=== PATIENT | female | born 1945 | race Caucasian/White ===

== ENCOUNTER → 2017-05-21 | Outpatient (CLI) | payer MEDICARE, OTHER ==
[~2017-05-21] MED LIST: AMLO5TAB4 PO; ANTI1CAP3 PO; ASPI-650 PO; CHLO4TAB PO; CHOL400T8 PO; FERR27TA PO; MULT-703 PO; NIACIN PO; VITA400C15 PO
--- NOTE | 2017-05-21 14:53 | RADRPT ---
PROCEDURE: Parathyroid sestamibi scan CLINICAL INDICATION: 71 -year-old patient with hyperparathyroidism, status post thyroidectomy. TECHNIQUE: Following the intravenous injection of 21.0 mCi of Tc-99m Sestamibi, planar images of t he neck and chest were obtained at minutes and hours post injection. COMPARISON: No prior sestamibi scans. FINDINGS: The thyroid gland is not visualized. The patient is status post total thyroidectomy. Questionable small area of low level activity is seen on the anterior view inferior to the projected location of the lower pole of the right lobe of the thyroid gland which demonstrate questionable mi ld retention of activity on the delayed views. The finding cannot be confirmed with certainty on the right anterior oblique image. at the projected location No other abnormal focal areas of increased activity are seen in the thyroi d gland and in the remainder of the neck and chest. Physiologic activity is seen in the salivary glands. IMPRESSION: 1. Questionable small focus of low level uptake inferior to the projected location of the right lob e of the thyroid gland with mild retention of activity on the delayed images; a parathyroid adenoma cannot be ruled out. 2. Nonvisualization of the thyroid gland in a patient with status post total thyroidectomy. RPTAT: HH .Sommer Contreras MD, MD Date Time Electronically viewed and signed by .Sommer Contreras MD, on 05/21/2017 14:52 .L/
== END | disposition home or self-care (01) ==
LOC: NUC 10:33
PROVIDERS: ATTEND Internal Medicine
DX: E21.3 Hyperparathyroidism, unspecified (principal)
CPT/HCPCS: 78070; A9500

== ENCOUNTER → 2017-08-31 | Outpatient (CLI) | END | disposition home or self-care (01) ==